=== PATIENT | male | born 1935 | race Caucasian/White ===

== ENCOUNTER 2017-10-31 19:51 | Observation (INO) ==
[2017-10-31] MEDS ORDERED: SILVER NITRATE STICK 1 EACH TOP ONE ×2 (21:01→21:02)
[2017-10-31] MEDS ORDERED: SILVER NITRATE STICK 1 EACH TOP STA (21:26)
[2017-10-31 21:32] LABS: Basophils % 0.5 % (0.0-0.8); Eosinophils # 0.1 10*3/uL (0.0-0.87); Eosinophils % 2.3 % (0.00-10.9); Hematocrit 33.6 VOL% (42.0-52.0); Hemoglobin 10.8 GM/DL (14.0-18.0); Immature Granulocytes % 0.5 %; Immature Granulocytes Absolute 0.03 #; Lymphocytes % 34.8 % (21.2-54.2); Mean Corpuscular HGB Conc 32.1 GM/DL (32-36); Mean Corpuscular Hemoglobin 31 PG (27-34); Mean Corpuscular Volume 95.7 FL (87-102); Monocytes # 0.7 10*3/uL (0.11-0.8); Monocytes % 11.5 % (1.7-12.7); Neutrophils # 2.9 10*3/uL (1.4-7.4); Neutrophils % 50.4 % (38.7-73.9); Platelet Count 141 T/CUMM (130-400); Red Blood Count 3.51 MC/CUMM (3.8-5.5); Red Cell Distribution Width 15.4 % (9.3-17.3); White Blood Count 5.8 T/CUMM (4-12)
[2017-10-31 21:51] LABS: PT Patient Result 88.4 SECS
[2017-10-31 21:53] LABS: INR 9.1
[2017-10-31] MEDS ORDERED: PHYTONADIONE 10 MG/1 ML AMP SUBCUT STA (22:03)
[2017-11-01] MEDS ORDERED: GLUCAGON 1 MG VIAL IM PRN (01:36)
[2017-11-01] MEDS ORDERED: ONDANSETRON 4 MG/2 ML VIAL IV PRN (01:36)
[2017-11-01] MEDS ORDERED: ACETAMINOPHEN 325 MG TABLET PO PRN (01:36)
[2017-11-01] MEDS ORDERED: DEXTROSE 50% 25 GM/50 ML VIAL IV PRN (01:36)
[2017-11-01] MEDS: GEMFIBROZIL 600 MG TABLET PO SCH ×2 (02:22→08:29)
[2017-11-01] MEDS: MULTIVITAMIN (OCUVITE) TABLET PO SCH ×2 (02:23→08:29)
[2017-11-01] MEDS: SOTALOL 80 MG TABLET PO SCH ×2 (02:25→08:29)
[2017-11-01] MEDS: DILTIAZEM CD 180 MG CAPSULE PO SCH ×2 (02:29→08:29)
[2017-11-01] MEDS: METOPROLOL SUCCINATE XL 100 MG TABLET PO SCH ×2 (02:30→08:35)
[2017-11-01 07:12] LABS: Basophils % 0.4 % (0.0-0.8); Eosinophils # 0.1 10*3/uL (0.0-0.87); Eosinophils % 1.5 % (0.00-10.9); Hematocrit 30.9 VOL% (42.0-52.0); Hemoglobin 10.1 GM/DL (14.0-18.0); Immature Granulocytes % 0.2 %; Immature Granulocytes Absolute 0.01 #; Lymphocytes # 1.7 10*3/uL (1.4-4.0); Lymphocytes % 31.7 % (21.2-54.2); Mean Corpuscular HGB Conc 32.7 GM/DL (32-36); Mean Corpuscular Hemoglobin 31 PG (27-34); Mean Corpuscular Volume 95.1 FL (87-102); Mean Platelet Volume 10.2 FL (9.6-12.0); Monocytes # 0.5 10*3/uL (0.11-0.8); Monocytes % 9.6 % (1.7-12.7); Neutrophils % 56.6 % (38.7-73.9); Platelet Count 119 T/CUMM (130-400); Red Blood Count 3.25 MC/CUMM (3.8-5.5); Red Cell Distribution Width 15.3 % (9.3-17.3); White Blood Count 5.2 T/CUMM (4-12)
[2017-11-01 07:34] LABS: PT Patient Result 68.3 SECS
[2017-11-01 07:36] LABS: INR 6.9
[2017-11-01 07:39] LABS: Calcium 8.7 MG/DL (8.5-10.1)
[2017-11-01] MEDS: INSULIN REGULAR 100 UNIT/ML SUBCUT SCH ×2 (07:57→11:54)
[2017-11-01] MEDS ORDERED: PHYTONADIONE 10 MG/1 ML AMP SUBCUT ONE (08:54)
[2017-11-01] MEDS ORDERED: ASCORBIC ACID 500 MG TABLET PO SCH (09:00)
[2017-11-01] MEDS ORDERED: GABAPENTIN 300 MG CAPSULE PO SCH (09:00)
[2017-11-01] MEDS ORDERED: GLUCOSAMINE 500 MG TABLET PO SCH ×2 (09:00)
[2017-11-01] MEDS ORDERED: FUROSEMIDE 40 MG TABLET PO SCH (09:00)
[2017-11-01] MEDS ORDERED: PANTOPRAZOLE 40 MG TABLET PO SCH (12:00)
[2017-11-01] MEDS ORDERED: BACITRACIN OINT 0.9 GM PACK TOP SCH (13:00)
[2017-11-01 15:07] VITALS: BP 110/65
[2017-11-01] MEDS ORDERED: ROSUVASTATIN 20 MG TABLET PO SCH (17:00)
[2017-11-01] MEDS ORDERED: ALLOPURINOL 300 MG TABLET PO SCH (17:00)
== END 2017-11-01 15:00 | disposition home health service (06) ==
LOC: N.ED 19:51 → N.EDINP 19:51 → N.5E 23:59
PROVIDERS: ADMIT Internal Medicine; ATTEND Internal Medicine